=== PATIENT | male | born 1960 | race Caucasian/White ===

== ENCOUNTER 2018-05-29 05:30 | Observation (INO) ==
[2018-05-29] MEDS ORDERED: Famotidine PF Inj 20 MG/2 ML Vial IV.PUSH ONE (05:32)
--- NOTE | 2018-05-29 05:42 | ED ---
HPI General Chief Complaint: Chest Pain Stated Complaint: chest pain/poss bedbug Time Seen by Provider: 05/29/18 05:32 Source: patient Mode of arrival: EMS Limitations: no limitations History of Present Illness HPI narrative: Patient comes from a hotel, complains of chest pain... Substernal, nonradiating, 6 out of 10, ongoing now for 12 hours and per patient constant EMS provided with aspirin 325, nitro sublingual spray 2, and the pain is now nearly resolved MD complaint: chest pain STEMI Alert: No Onset (ago): hour(s) (12) Duration: constant Onset: during rest Pain location: substernal Severity scale (1-10): 4 Quality: tightness Pain radiation: none Relieving factors: nothing Exacerbating factors: nothing Treatments prior to arrival chest pain: aspirin (325 mg given by EMS prior to arrival) and nitroglycerin Related Data Home Medications Medication Instructions Recorded Confirmed hydrocodone-acetaminophen [[place]] 1 tab PO Q4-6H PRN 05/29/18 05/29/18 Previous Rx's Medication Instructions Recorded hydroxyzine HCl 25 mg PO TID-QID PRN #10 tab 05/29/18 permethrin 1 applic TOPICAL Q7D #1 g 05/29/18 Allergies Allergy/AdvReac Type Severity Reaction Status Date / Time No Known Allergies Allergy Unverified 05/29/18 05:38 Review of Systems ROS: all other systems reviewed are negative PMFSH History History Provided By: Patient Social History Social History Substance History: No History of Abuse Smoking Status: Current every day smoker Tobacco Type: Cigarettes How Often Do You Have a Drink Containing Alcohol: Never Recent Travel in [facility] within the Last 8 Weeks: No Recent Out of Country Travel within the Last 8 Weeks: No Exam Narrative Exam Narrative: GENERAL: Well-nourished, well-developed patient in no apparent distress. SKIN: Warm and dry. HEAD: Atraumatic. Normocephalic. EYES: Pupils equal and round. No scleral icterus. No injection or drainage. ENT: No nasal bleeding or discharge. Mucous membranes pink and moist. NECK: Trachea midline. No JVD. CARDIOVASCULAR: Regular rate and rhythm. no rubs or gallops RESPIRATORY: No accessory muscle use. Clear to auscultation. Breath sounds equal bilaterally. GASTROINTESTINAL: Abdomen soft, non-tender, nondistended. No rebound or guarding MUSCULOSKELETAL: Extremities without clubbing, cyanosis, or edema. No obvious deformities. NEUROLOGICAL: Awake and alert. No obvious cranial nerve deficits. Motor grossly within normal limits. Five out of 5 muscle strength in the arms and legs. Normal speech. PSYCHIATRIC: Appropriate mood and affect; insight and judgment normal. Course Initial Documented Vital Signs Pulse Oximetry 97 05/29/18 05:32 Last Documented Vital Signs Temperature 98.1 F 05/29/18 11:24 Pulse Rate 60 05/29/18 11:24 Respiratory Rate 18 05/29/18 11:24 Blood Pressure 116/77 05/29/18 11:24 Pulse Oximetry 98 05/29/18 11:24 Medical Decision Making MDM Narrative Medical Screen Exam Complete: Yes Emergency Medical Condition: Yes Differential Diagnosis Differential Diagnosis: STEMI versus pneumonia versus pneumothorax Medical Records Medical records reviewed: Yes I reviewed the patient's medical records. Lab Data Lab results reviewed: Yes I reviewed the patient's lab results. Result diagrams: 05/29/18 05:51 05/29/18 05:51 Lab Results 05/29/18 05/29/18 05/29/18 Range/Units 05:51 05:51 05:51 WBC 10.4 (4.0-11.0) th/mm3 RBC 4.57 (4.50-5.90) mil/mm3 Hgb 15.0 (13.0-17.0) gm/dL Hct 43.7 (39.0-51.0) % MCV 95.5 (80.0-100.0) fL MCH 32.9 (27.0-34.0) pg MCHC 34.4 (32.0-36.0) % RDW 13.6 (11.6-17.2) % Plt Count 265 (150-450) th/mm3 MPV 7.6 (7.0-11.0) fL Neut % (Auto) 56.4 (16.0-70.0) % Lymph % (Auto) 26.0 (9.0-44.0) % [place] % (Auto) 8.2 H (0.0-8.0) % Eos % (Auto) 8.9 H (0.0-4.0) % Baso % (Auto) 0.5 (0.0-2.0) % Neut # (Auto) 5.9 (1.8-7.7) th/mm3 Lymph # (Auto) 2.7 (1.0-4.8) th/mm3 [place] # (Auto) 0.8 (0.0-0.9) th/mm3 Eos # (Auto) 0.9 H (0.0-0.4) th/mm3 Baso # (Auto) 0.1 (0.0-0.2) th/mm3 WBC Differential . Differential Comment Auto diff final PT (9.8-11.6) sec INR Ratio APTT (24.3-30.1) sec D-Dimer Quant (PE/DVT) 0.56 H (0.00-0.50) mg/L FEU Sodium 141 (136-145) meq/L Potassium 3.9 (3.5-5.1) meq/L Chloride 105 (98-107) meq/L Carbon Dioxide 29.5 (21.0-32.0) meq/L Anion Gap 7 (5-15) meq/L BUN 19 H (7-18) mg/dL Creatinine 1.04 (0.60-1.30) mg/dL Estimated GFR 74 L (>89) mL/min Random Glucose 110 H (74-106) mg/dL Calcium 8.7 (8.5-10.1) mg/dL Total Bilirubin 0.2 (0.2-1.0) mg/dL AST 19 (15-37) U/L ALT 23 (12-78) U/L Alkaline Phosphatase 80 (45-117) U/L Total Creatine Kinase (39-308) U/L CK-MB (CK-2) (0.5-3.6) ng/mL Troponin I Less than 0.02 L (0.02-0.05) ng/mL B-Natriuretic Peptide (0-100) pg/mL Total Protein 6.9 (6.4-8.2) g/dL Albumin 3.5 (3.4-5.0) g/dL Lipase 106 (73-393) U/L Urine Color (Yellw/Straw) Urine Clarity (Clear) Urine pH (5.0-8.5) Ur Specific Bath (1.002-1.035) Urine Protein (Neg-Trace) mg/dL Urine Glucose (UA) (Negative) mg/dL Urine Ketones (Negative) mg/dL Urine Occult Blood (Negative) Urine Nitrate (Negative) Urine Bilirubin (Negative) Urine Urobilinogen (Less than 2) mg/dL Ur Leukocyte Esterase (Negative) Amorphous Sediment (None) /hpf Urine Mucus (Occasional) /lpf Micro UA Comment Ur Microscopic Review Urine Culture Comments Serum Alcohol Less than 3 (0-5) mg/dL 05/29/18 05/29/18 05/29/18 Range/Units 05:51 05:51 05:51 WBC (4.0-11.0) th/mm3 RBC (4.50-5.90) mil/mm3 Hgb (13.0-17.0) gm/dL Hct (39.0-51.0) % MCV (80.0-100.0) fL MCH (27.0-34.0) pg MCHC (32.0-36.0) % RDW (11.6-17.2) % Plt Count (150-450) th/mm3 MPV (7.0-11.0) fL Neut % (Auto) (16.0-70.0) % Lymph % (Auto) (9.0-44.0) % [place] % (Auto) (0.0-8.0) % Eos % (Auto) (0.0-4.0) % Baso % (Auto) (0.0-2.0) % Neut # (Auto) (1.8-7.7) th/mm3 Lymph # (Auto) (1.0-4.8) th/mm3 [place] # (Auto) (0.0-0.9) th/mm3 Eos # (Auto) (0.0-0.4) th/mm3 Baso # (Auto) (0.0-0.2) th/mm3 WBC Differential Differential Comment PT 10.0 (9.8-11.6) sec INR 1.0 Ratio APTT 24.3 (24.3-30.1) sec D-Dimer Quant (PE/DVT) (0.00-0.50) mg/L FEU Sodium (136-145) meq/L Potassium (3.5-5.1) meq/L Chloride (98-107) meq/L Carbon Dioxide (21.0-32.0) meq/L Anion Gap (5-15) meq/L BUN (7-18) mg/dL Creatinine (0.60-1.30) mg/dL Estimated GFR (>89) mL/min Random Glucose (74-106) mg/dL Calcium (8.5-10.1) mg/dL Total Bilirubin (0.2-1.0) mg/dL AST (15-37) U/L ALT (12-78) U/L Alkaline Phosphatase (45-117) U/L Total Creatine Kinase 157 (39-308) U/L CK-MB (CK-2) 1.0 (0.5-3.6) ng/mL Troponin I (0.02-0.05) ng/mL B-Natriuretic Peptide 19 (0-100) pg/mL Total Protein (6.4-8.2) g/dL Albumin (3.4-5.0) g/dL Lipase (73-393) U/L Urine Color (Yellw/Straw) Urine Clarity (Clear) Urine pH (5.0-8.5) Ur Specific Bath (1.002-1.035) Urine Protein (Neg-Trace) mg/dL Urine Glucose (UA) (Negative) mg/dL Urine Ketones (Negative) mg/dL Urine Occult Blood (Negative) Urine Nitrate (Negative) Urine Bilirubin (Negative) Urine Urobilinogen (Less than 2) mg/dL Ur Leukocyte Esterase (Negative) Amorphous Sediment (None) /hpf Urine Mucus (Occasional) /lpf Micro UA Comment Ur Microscopic Review Urine Culture Comments Serum Alcohol (0-5) mg/dL 05/29/18 05/29/18 05/29/18 Range/Units 05:59 09:00 12:09 WBC (4.0-11.0) th/mm3 RBC (4.50-5.90) mil/mm3 Hgb (13.0-17.0) gm/dL Hct (39.0-51.0) % MCV (80.0-100.0) fL MCH (27.0-34.0) pg MCHC (32.0-36.0) % RDW (11.6-17.2) % Plt Count (150-450) th/mm3 MPV (7.0-11.0) fL Neut % (Auto) (16.0-70.0) % Lymph % (Auto) (9.0-44.0) % [place] % (Auto) (0.0-8.0) % Eos % (Auto) (0.0-4.0) % Baso % (Auto) (0.0-2.0) % Neut # (Auto) (1.8-7.7) th/mm3 Lymph # (Auto) (1.0-4.8) th/mm3 [place] # (Auto) (0.0-0.9) th/mm3 Eos # (Auto) (0.0-0.4) th/mm3 Baso # (Auto) (0.0-0.2) th/mm3 WBC Differential Differential Comment PT (9.8-11.6) sec INR Ratio APTT (24.3-30.1) sec D-Dimer Quant (PE/DVT) (0.00-0.50) mg/L FEU Sodium (136-145) meq/L Potassium (3.5-5.1) meq/L Chloride (98-107) meq/L Carbon Dioxide (21.0-32.0) meq/L Anion Gap (5-15) meq/L BUN (7-18) mg/dL Creatinine (0.60-1.30) mg/dL Estimated GFR (>89) mL/min Random Glucose (74-106) mg/dL Calcium (8.5-10.1) mg/dL Total Bilirubin (0.2-1.0) mg/dL AST (15-37) U/L ALT (12-78) U/L Alkaline Phosphatase (45-117) U/L Total Creatine Kinase 142 135 (39-308) U/L CK-MB (CK-2) (0.5-3.6) ng/mL Troponin I Less than 0.02 L Less than 0.02 L (0.02-0.05) ng/mL B-Natriuretic Peptide (0-100) pg/mL Total Protein (6.4-8.2) g/dL Albumin (3.4-5.0) g/dL Lipase (73-393) U/L Urine Color Straw (Yellw/Straw) Urine Clarity Clear (Clear) Urine pH 7.0 (5.0-8.5) Ur Specific Bath 1.009 (1.002-1.035) Urine Protein Negative (Neg-Trace) mg/dL Urine Glucose (UA) Negative (Negative) mg/dL Urine Ketones Negative (Negative) mg/dL Urine Occult Blood Negative (Negative) Urine Nitrate Negative (Negative) Urine Bilirubin Negative (Negative) Urine Urobilinogen Less than 2 (Less than 2) mg/dL Ur Leukocyte Esterase Negative (Negative) Amorphous Sediment Rare H (None) /hpf Urine Mucus Few H (Occasional) /lpf Micro UA Comment Culture not ind Ur Microscopic Review Not Reportable Urine Culture Comments Culture not ind Serum Alcohol (0-5) mg/dL Imaging Data Radiologist's impression: Chest X-Ray 05/29/18 05:32 CONCLUSION: No evidence of acute cardiopulmonary disease. Discharge Plan Discharge Disposition Patient Disposition: 01 Discharge Home Discharge Condition Condition: Stable Discharge Order Discharge Orders: Discharge Order (Routine); Ordered 05/29/18 Ordered By: Radha Ambrosio Discharge Details Anticipated Discharge Date: 05/29/18 Diagnosis: Atypical chest pain Physicians Team ED Provider: Ignacio Garcia Primary Care Provider: Primary Care Mabel Pabon Attending Provider: Jamal Read Discharge Interventions Interventions: ED Discharge Assessment Last Done: 05/29/18 10:10 Status ED Status: Left Department Discharge Information Discharge Date/Time: 05/29/18 10:11
--- NOTE | 2018-05-29 06:02 | XR ---
EXAM DATE: 05/29/2018 5:54 AM EDT AGE/SEX: 57 years / Male INDICATIONS: Chest pain, shortness of breath. CLINICAL DATA: This is the patient's initial encounter. Patient reports that signs and symptoms have been present for 2 days and indicates a pain score of 4/10. MEDICAL/SURGICAL HISTORY: . Smoker. None. COMPARISON: No prior exams available for comparison. FINDINGS: A single AP view of the chest demonstrates the lungs to be symmetrically aerated without evidence of mass, infiltrate or effusion. The cardiomediastinal contours are unremarkable. Osseous structures a re intact. CONCLUSION: No evidence of acute cardiopulmonary disease. Electronically signed by: Richy Rojas MD 05/29/2018 6:00 AM EDT
[2018-05-29 06:21] LABS: Baso # (Auto) 0.1 th/mm3 (0.0-0.2); Baso % (Auto) 0.5 % (0.0-2.0); Eos # (Auto) 0.9 th/mm3 (0.0-0.4); Eos % (Auto) 8.9 % (0.0-4.0); Hematocrit 43.7 % (39.0-51.0); Lymph # (Auto) 2.7 th/mm3 (1.0-4.8); Mean Corpuscular HGB Conc 34.4 % (32.0-36.0); Mean Corpuscular Hemoglobin 32.9 pg (27.0-34.0); Mean Corpuscular Volume 95.5 fL (80.0-100.0); Mean Platelet Volume 7.6 fL (7.0-11.0); Mono # (Auto) 0.8 th/mm3 (0.0-0.9); Mono % (Auto) 8.2 % (0.0-8.0); Neut # (Auto) 5.9 th/mm3 (1.8-7.7); Neut % (Auto) 56.4 % (16.0-70.0); Platelet Count 265 th/mm3 (150-450); Red Blood Count 4.57 mil/mm3 (4.50-5.90); Red Cell Distribution Width 13.6 % (11.6-17.2); White Blood Count 10.4 th/mm3 (4.0-11.0)
[2018-05-29 06:39] LABS: Activated Partial Thrombo Time 24.3 sec (24.3-30.1)
[2018-05-29 06:56] LABS: Albumin 3.5 g/dL (3.4-5.0); Anion Gap 7 meq/L (5-15); Aspartate Aminotransferase 19 U/L (15-37); Blood Urea Nitrogen 19 mg/dL (7-18); Calcium 8.7 mg/dL (8.5-10.1); Carbon Dioxide 29.5 meq/L (21.0-32.0); Chloride 105 meq/L (98-107); Glomerular Filtration Rate 74 mL/min (>89); Glucose,Random 110 mg/dL (74-106); Lipase 106 U/L (73-393); Potassium 3.9 meq/L (3.5-5.1); Sodium 141 meq/L (136-145)
[2018-05-29 06:57] LABS: Alanine Aminotransferase 23 U/L (12-78)
[2018-05-29 06:59] LABS: Amorphous Sediment,Urine Rare /hpf; Bilirubin,Urine Negative (Negative); Clarity,Urine Clear (Clear); Color,Urine Straw (Yellw/Straw); Glucose,Urine (UA) Negative (Negative); Leukocyte Esterase,Urine Negative (Negative); Mucus,Urine Few /lpf (Occasional); Nitrite,Urine Negative (Negative); Specific Gravity,Urine 1.009 (1.002-1.035)
[2018-05-29 06:59] LABS: Creatine Kinase 157 U/L (39-308)
[2018-05-29 07:01] LABS: Alkaline Phosphatase 80 U/L (45-117); Total Protein 6.9 g/dL (6.4-8.2)
[2018-05-29] MEDS ORDERED: Acetaminophen 500 MG Tablet PO PRN (07:49)
--- NOTE | 2018-05-29 08:46 | P.HPCA ---
History of Present Illness Primary Care Physician: Dr. Umer Burnett, [place], [place] Chief Complaint: New onset diffuse rash and chest pressure History of Present Illness: 57-year-old male with history of GERD, migraines, current smoker, and chronic back pain presents emergency room for further evaluation of new onset of rash pain. 4:15 AM. Location substernal. Characterized as tightness and pressure. Associated symptoms including heavy breathing, slight nausea, and diaphoresis. Did not hurt to take deep breath and denies shortness of breath. Precipitating factors he relates to new onset rash. No relieving factors. After receiving nitroglycerin sublingual approximately 1 hour after receiving nitro chest pressure relieved, denies immediate relief. No current chest discomfort. Rash describes as acute onset, extremely itchy. Reports staying at a local hotel. Denies any recent illness, fever, or injury. Reports similar rash in the past, often relieved taking hot showers and OTC remedies. Works in [employer] but does not recall or relate recent outside work to current rash. Past cardiac testing None Social history 1/2 pack/daily smoker. Decreased from 4 packs/daily in 1991. Denies any alcohol or recreational drug use. Endorses an active lifestyle. He is , at this time. Reports stress around martial issues. Family history Noncontributory for early onset cardiovascular disease - Diagnosis (1) Atypical chest pain (2) Diffuse papular rash (3) Tobacco use Review of Systems All other systems reviewed negative except as stated in HPI Skin/Breast: Reports itching PMFSH - History History Provided By: Patient - Medical History Medical History: Medical History (Last Reviewed 05/29/18 @ 05:39 by Ignacio Garcia) Gastric ulcer History of inguinal hernia - Tobacco History Tobacco Use In Past 30 Days: Yes Smoking Status: Current every day smoker Tobacco Type: Cigarettes - Alcohol History How Often Do You Have a Drink Containing Alcohol: Never - Substance Use History Substance History: No History of Abuse - Travel History Recent Travel in the [place] Within the Last 8 Weeks: No Recent Travel Out of the Country Within the Last 8 Weeks: No - Immunization History Tetanus Immunization: Unsure Hx Influenza Vaccine This Season: No Medications and Allergies Active Medications: Active Medications Acetaminophen (Tylenol) 500 mg PO Q4H PRN PRN Reason: HEADACHE Aspirin (Aspirin) 325 mg PO DAILY RUDY Nitroglycerin (Nitrostat Sl) 0.4 mg SL Q5M PRN PRN Reason: CHEST PAIN Ondansetron HCl (Zofran Inj) 4 mg IV.PUSH Q6H PRN PRN Reason: NAUSEA Sodium Chloride (Ns Flush) 2 ml IV.FLUSH BID RUDY Sodium Chloride (Ns Flush) 2 ml IV.FLUSH UNSCH PRN PRN Reason: FLUSH AFTER USING IV ACCESS Allergies Allergy/AdvReac Type Severity Reaction Status Date / Time No Known Allergies Allergy Unverified 05/29/18 05:38 Home Medications Medication Instructions Recorded Confirmed Type hydrocodone-acetaminophen [[place]] 1 tab PO Q4-6H PRN 05/29/18 05/29/18 History Exam Vital signs: Vital Signs 05/29/18 05:32 05/29/18 05:35 05/29/18 07:27 Temperature 98.4 F Pulse Rate 66 58 L Respiratory Rate 18 16 Blood Pressure 154/92 H 122/74 Pulse Oximetry 97 99 Intake & Output 05/28/18 05/29/18 05/29/18 18:59 06:59 18:59 Weight 68.039 kg Narrative: GENERAL: Alert WN, WD, NAD, pleasant, thin male, easily awakens from sleep HEAD: NC, AT EYES: Sclera clear, conjunctiva without injection, pupils equal and round ENT: Mucous membranes pink and moist, no nasal discharge or bleeding, poor mentation NECK: Supple, no masses, trachea midline CV: RRR, without murmur, rub, gallop, no JVD, S1-S2 no S3-S4. No carotid bruits. Chest wall nontender to palpation RESP: Diminished lungs throughout bilateral, no crackles, wheeze, rhonchi, symmetrical chest rise, nonlabored, able to speak in full sentences ABD: Soft, NT, ND, no masses, positive bowel tones BACK: No scoliosis EXT: Pulses +2x4, no dependent edema MS: Normal tone x4 extremities, nontender, no obvious deformities, full range of motion NEURO: CN II through CN XII grossly intact, motor strength 5/5 PSYCH: A+O x3, pleasant affect, appropriate speech, mood, insight and judgment SKIN: Diffuse erythematous papule rash on upper chest, scattered area on abdomen , upper back, bilateral shoulders, scattered areas bilateral upper and lower extremities. No areas open or draining. normal turgor, normal texture Results 05/29/18 05:51 05/29/18 05:51 Cardiac Enzymes 05/29/18 05/29/18 05/29/18 Range/Units 05:51 05:51 05:51 AST 19 (15-37) U/L CK-MB (CK-2) 1.0 (0.5-3.6) ng/mL Troponin I Less than 0.02 L (0.02-0.05) ng/mL B-Natriuretic Peptide 19 (0-100) pg/mL Coagulation 05/29/18 05/29/18 Range/Units 05:51 05:51 PT 10.0 (9.8-11.6) sec APTT 24.3 (24.3-30.1) sec B-Natriuretic Peptide 19 (0-100) pg/mL CBC 05/29/18 Range/Units 05:51 WBC 10.4 (4.0-11.0) th/mm3 RBC 4.57 (4.50-5.90) mil/mm3 Hgb 15.0 (13.0-17.0) gm/dL Hct 43.7 (39.0-51.0) % Plt Count 265 (150-450) th/mm3 Neut # (Auto) 5.9 (1.8-7.7) th/mm3 Lymph # (Auto) 2.7 (1.0-4.8) th/mm3 [place] # (Auto) 0.8 (0.0-0.9) th/mm3 Eos # (Auto) 0.9 H (0.0-0.4) th/mm3 Baso # (Auto) 0.1 (0.0-0.2) th/mm3 Comprehensive Metabolic Panel 05/29/18 Range/Units 05:51 Sodium 141 (136-145) meq/L Potassium 3.9 (3.5-5.1) meq/L Chloride 105 (98-107) meq/L Carbon Dioxide 29.5 (21.0-32.0) meq/L BUN 19 H (7-18) mg/dL Creatinine 1.04 (0.60-1.30) mg/dL Calcium 8.7 (8.5-10.1) mg/dL AST 19 (15-37) U/L ALT 23 (12-78) U/L Alkaline Phosphatase 80 (45-117) U/L Total Protein 6.9 (6.4-8.2) g/dL Albumin 3.5 (3.4-5.0) g/dL Intake and Output 05/28/18 05/29/18 05/29/18 22:59 06:59 14:59 Other: Weight 68.039 kg - Imaging and Cardiology Imaging: Impressions Chest X-Ray 05/29/18 05:32 CONCLUSION: No evidence of acute cardiopulmonary disease. EKG interpretations - EKG EKG results cardiology: sinus rhythm, normal axis, normal QRS, normal ST/T Caprini VTE Risk Assessment Caprini VTE Risk Assessment: No/Low Risk (score <= 1) Caprini Risk Assessment Model: Point Value = 1 Point Value = 2 Point Value = 3 Point Value = 5 Age 41-60 Minor surgery BMI > 25 kg/m2 Swollen legs Varicose veins or History of unexplained or recurrent spontaneous Oral contraceptives or hormone replacement Sepsis (< 1 month) Serious lung disease, including pneumonia (< 1 month) Abnormal pulmonary function Acute myocardial infarction Congestive heart failure (< 1 month) History of inflammatory bowel disease Medical patient at bed rest Age 61-74 Arthroscopic surgery Major open surgery (> 45 min) Laparoscopic surgery (> 45 min) Malignancy Confined to bed (> 72 hours) Immobilizing plaster cast Central venous access Age >= 75 History of VTE Family history of VTE Factor V Leiden Prothrombin [id number] Lupus anticoagulant Anticardiolipin antibodies Elevated serum homocysteine Heparin-induced thrombocytopenia Other congenital or acquired thrombophilia Stroke (< 1 month) Elective arthroplasty Hip, pelvis, or leg fracture Acute spinal cord injury (< 1 month) Prophylaxis Regimen: Total Risk Factor Score Risk Level Prophylaxis Regimen 0-1 Low Early ambulation 2 Moderate Order ONE of the following: *Sequential Compression Device (SCD) *Heparin 5000 units SQ BID 3-4 Higher Order ONE of the following medications: *Heparin 5000 units SQ TID *Enoxaparin/Lovenox 40 mg SQ daily (WT < 150 kg, CrCl > 30 mL/min) *Enoxaparin/Lovenox 30 mg SQ daily (WT < 150 kg, CrCl > 10-29 mL/min) *Enoxaparin/Lovenox 30 mg SQ BID (WT < 150 kg, CrCl > 30 mL/min) AND/OR *Sequential Compression Device (SCD) 5 or more Highest Order ONE of the following medications: *Heparin 5000 units SQ TID (Preferred with Epidurals) *Enoxaparin/Lovenox 40 mg SQ daily (WT < 150 kg, CrCl > 30 mL/min) *Enoxaparin/Lovenox 30 mg SQ daily (WT < 150 kg, CrCl > 10-29 mL/min) *Enoxaparin/Lovenox 30 mg SQ BID (WT < 150 kg, CrCl > 30 mL/min) AND *Sequential Compression Device (SCD) Assessment and Plan - Assessment (1) Atypical chest pain Code(s): R07.89 - Other chest pain Status: Acute Plan: Admitted to chest pain center. ACS ruled out with 2 sets of EKGs and cardiac enzymes. Seen evaluated by Dr. Jamal Read. Chest discomfort atypical for cardiac etiology, discomfort began immediately after noticing rash. No further cardiac testing. (2) Diffuse papular rash Code(s): R21 - Rash and other nonspecific skin eruption Status: Acute Plan: Etiology unclear suspecting either chiggers, insect bites, or scabies. Scabies precautions initiated. Permethrin cream treatment given prior to discharge. Instructed to reapply if rash persists in 7 days. Instructed not to bath/shower after treatment applied for 8-10 hours. Verbalized understanding. Prescription for hydroxyzine given for intense itching and instructed medication may cause drowsiness. Follow up with primary care provider next week to reevaluate rash and treatment. (3) Tobacco use Code(s): Z72.0 - Tobacco use Status: Chronic Plan: Strongly encouraged stress importance of tobacco cessation. Instructed to quit smoking.
[2018-05-29] MEDS ORDERED: Aspirin 325 MG Tablet PO SCH (09:00)
[2018-05-29 10:25] LABS: Creatine Kinase 142 U/L (39-308)
--- NOTE | 2018-05-29 11:08 | P.PNCA ---
Subjective Interval history: 57-year-old patient was presented by the nurse practitioner essentially presents to the emergency room with a diffuse very itchy rash. He also complained of some chest pressure and was immediately transferred to the chest pain center for evaluation. The patient apparently has been undergoing some issues at home and had taken in a hotel room on [facility]. He awoke during the night with intense itching in his chest and somewhat diffusely throughout his body. He has had some episodes of this in the past but mostly related to his legs. 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 There would also be concerned for possible exposure for scabies. This a.m. his primary concern is the itching and the discomfort from the rash and not chest pain. Review of his laboratory data does reveal elevated eosinophils which would be consistent with reaction to insect bites. He has ruled out by chest pain center protocol further testing at this time was felt to be an appropriate. He was put on scabietic precautions and treated with permethrin. He will be discharged with prescription for further permethrin treatment and follow-up with his primary care physician Dr. Burnett. Medications and Allergies Active Medications: Active Medications Acetaminophen (Tylenol) 500 mg PO Q4H PRN PRN Reason: HEADACHE Aspirin (Aspirin) 325 mg PO DAILY RUDY Nitroglycerin (Nitrostat Sl) 0.4 mg SL Q5M PRN PRN Reason: CHEST PAIN Ondansetron HCl (Zofran Inj) 4 mg IV.PUSH Q6H PRN PRN Reason: NAUSEA Permethrin (Elimite 5% Cream) 1 applicatio TOPICAL ONCE ONE Stop: 05/29/18 11:01 Sodium Chloride (Ns Flush) 2 ml IV.FLUSH BID RUDY Sodium Chloride (Ns Flush) 2 ml IV.FLUSH UNSCH PRN PRN Reason: FLUSH AFTER USING IV ACCESS Allergies Allergy/AdvReac Type Severity Reaction Status Date / Time No Known Allergies Allergy Unverified 05/29/18 05:38 Home Medications Medication Instructions Recorded Confirmed Type hydrocodone-acetaminophen [[place]] 1 tab PO Q4-6H PRN 05/29/18 05/29/18 History Physical Exam Vital signs: Vital Signs 05/29/18 05:32 05/29/18 05:35 05/29/18 07:27 Temperature 98.4 F Pulse Rate 66 58 L Respiratory Rate 18 16 Blood Pressure 154/92 H 122/74 Pulse Oximetry 97 99 05/29/18 08:00 Temperature Pulse Rate 58 L Respiratory Rate Blood Pressure Pulse Oximetry Intake & Output 05/28/18 05/29/1818 18:59 06:59 18:59 Weight 68.039 kg Narrative: Physical examination is as documented I would simply add that the patient does have a diffuse rash involving his arms chest abdomen and legs that is entirely consistent with insect vector such as scabies or chiggers. He will be treated appropriately and since his evaluation for ACS has been negative he will be discharged to further follow-up with his primary care physician Dr. Burnett after resolution of some of his current skin issues. Results 05/29/18 05:51 05/29/18 05:51 Cardiac Enzymes 05/29/18 05/29/18 05/29/18 Range/Units 05:51 05:51 05:51 AST 19 (15-37) U/L CK-MB (CK-2) 1.0 (0.5-3.6) ng/mL Troponin I Less than 0.02 L (0.02-0.05) ng/mL B-Natriuretic Peptide 19 (0-100) pg/mL 05/29/18 Range/Units 09:00 AST (15-37) U/L CK-MB (CK-2) (0.5-3.6) ng/mL Troponin I Less than 0.02 L (0.02-0.05) ng/mL B-Natriuretic Peptide (0-100) pg/mL Coagulation 05/29/18 05/29/18 Range/Units 05:51 05:51 PT 10.0 (9.8-11.6) sec APTT 24.3 (24.3-30.1) sec B-Natriuretic Peptide 19 (0-100) pg/mL CBC 05/29/18 Range/Units 05:51 WBC 10.4 (4.0-11.0) th/mm3 RBC 4.57 (4.50-5.90) mil/mm3 Hgb 15.0 (13.0-17.0) gm/dL Hct 43.7 (39.0-51.0) % Plt Count 265 (150-450) th/mm3 Neut # (Auto) 5.9 (1.8-7.7) th/mm3 Lymph # (Auto) 2.7 (1.0-4.8) th/mm3 [place] # (Auto) 0.8 (0.0-0.9) th/mm3 Eos # (Auto) 0.9 H (0.0-0.4) th/mm3 Baso # (Auto) 0.1 (0.0-0.2) th/mm3 Comprehensive Metabolic Panel 05/29/18 Range/Units 05:51 Sodium 141 (136-145) meq/L Potassium 3.9 (3.5-5.1) meq/L Chloride 105 (98-107) meq/L Carbon Dioxide 29.5 (21.0-32.0) meq/L BUN 19 H (7-18) mg/dL Creatinine 1.04 (0.60-1.30) mg/dL Calcium 8.7 (8.5-10.1) mg/dL AST 19 (15-37) U/L ALT 23 (12-78) U/L Alkaline Phosphatase 80 (45-117) U/L Total Protein 6.9 (6.4-8.2) g/dL Albumin 3.5 (3.4-5.0) g/dL Intake and Output 05/28/18 05/29/18 05/29/18 22:59 06:59 14:59 Other: Weight 68.039 kg - Imaging and Cardiology Imaging: Impressions Chest X-Ray 05/29/18 05:32 CONCLUSION: No evidence of acute cardiopulmonary disease. Assessment and Plan - Plan Patient will be treated for his extensive rash with permethrin cream and given prescription and instructions for further follow-up. He is discharged to follow -up with his primary care physician Dr. Burnett until his skin condition is cleared and then further evaluation can be carried out if it is felt necessary.
[2018-05-29 11:27] VITALS: BP 116/77; PULSE 60; RESP 18; TEMP 98.1; O2SAT 98
[2018-05-29 12:51] LABS: Creatine Kinase 135 U/L (39-308)
--- NOTE | 2018-05-30 09:36 | ECG ---
Date Performed: 05/29/2018 Time Performed: 09:10:09 PTAGE: 57 years EKG: SINUS BRADYCARDIA POSSIBLE LEFT ATRIAL ENLARGEMENT POSSIBLE RIGHT VENTRICULAR CONDUCTION DE LAY SEPTAL MYOCARDIAL INFARCTION ABNORMAL ECG INTERPRETATION BASED ON A DEFAULT AGE OF 40 YEARS No si gnificant change PREVIOUS TRACING : 05/29/2018 05.26 DOCTOR: Jamal Read Interpretating Date/Time 05/30/2018 09:35:55
--- NOTE | 2018-05-30 09:37 | ECG ---
Date Performed: 05/29/2018 Time Performed: 05:26:10 PTAGE: 57 years EKG: Sinus rhythm POSSIBLE LEFT ATRIAL ENLARGEMENT POSSIBLE RIGHT VENTRICULAR CONDUCTION DELAY SEPTAL MYOCARDIAL INFAR CTION ABNORMAL ECG INTERPRETATION BASED ON A DEFAULT AGE OF 40 YEARS NO PREVIOUS TRACING DOCTOR: Jamal Read Interpretating Date/Time 05/30/2018 09:36:12
== END 2018-05-29 14:15 | disposition home or self-care (01) ==
LOC: NEDA 05:30 → NEPE 05:30 → NEPFCDU 07:51
PROVIDERS: ADMIT Internal Medicine Interventional Cardiology; ATTEND Internal Medicine Interventional Cardiology
DX: M54.9 Dorsalgia, unspecified; G89.29 Other chronic pain; W57.XXXA Bitten or stung by nonvenomous insect and other nonvenomous arthropods, initial encounter; R23.8 Other skin changes; F17.210 Nicotine dependence, cigarettes, uncomplicated; R07.89 Other chest pain; B88.0 Other acariasis; K21.9 Gastro-esophageal reflux disease without esophagitis; Z87.11 Personal history of peptic ulcer disease